=== PATIENT | male | born 1990 | race Caucasian/White ===

== ENCOUNTER 2018-03-13 23:07 | Emergency (ER) | payer SELFPAY, OTHER, MEDICAID ==
[2018-03-14] MEDS: IBUPROFEN 600 MG TAB PO (01:08)
[2018-03-14 01:20] LABS: ADD MAN DIFF? NO
[2018-03-14 01:22] LABS: BASOPHILS % 0.6 % (0.0-2.0); EOSINOPHILS # 0.1 10^3/ul (0.0-0.5); EOSINOPHILS % 1.3 % (0.0-7.0); HEMATOCRIT 40.5 % (42.0-52.0); HEMOGLOBIN 13.5 g/dl (14.0-18.0); LYMPHOCYTES # 2.2 10^3/ul (0.8-2.9); MEAN CORPUSCULAR HEMOGLOBIN 29.5 pg (29.0-33.0); MEAN CORPUSCULAR HGB CONC 33.3 g/dl (32.0-37.0); MEAN CORPUSCULAR VOLUME 88.6 fl (82.0-101.0); MEAN PLATELET VOLUME 9.1 fl (7.4-10.4); MONOCYTES % 15.9 % (0.0-11.0); NEUTROPHIL # 2.9 10^3/ul (1.6-7.5); NEUTROPHILS % 46.9 % (39.0-77.0); PLATELET COUNT 306 10^3/UL (140-415); RED BLOOD COUNT 4.57 10^6/ul (4.70-6.10)
[2018-03-14 01:22] LABS: WHITE BLOOD COUNT 6.3 10^3/ul (4.8-10.8)
[2018-03-14 01:42] LABS: URIC ACID 7.8 mg/dl (3.1-7.9)
[2018-03-14 01:42] LABS: C-REACTIVE PROTEIN 0.9 mg/dl (0.0-0.9)
[2018-03-14 03:06] LABS: ERYTHROCYTE SEDIMENTATION RATE 8 mm/Hr (0-15)
== END 2018-03-14 02:19 | disposition home or self-care (01) ==
LOC: FTE 23:07
DX: M79.675 Pain in left toe(s) (principal); F17.210 Nicotine dependence, cigarettes, uncomplicated; R40.2412 Glasgow coma scale score 13-15, at arrival to emergency department
CPT/HCPCS: 73660; 84560; 85025; 85651; 86140; 99284-25